=== PATIENT | female | born 1985 | race Caucasian/White ===

== ENCOUNTER 2016-07-21 11:08 | Emergency (ER) | payer OTHER ==
[~2016-07-21] VITALS: Ht 172.7 cm; Wt 144.1 kg
[~2016-07-21 11:08] MED LIST: ALDACTONE50 MG PO; BIRTH CONTROL PILL; CIPRO500 MG PO; FLEXERIL10 MG PO; GLUCOPHAGE1000 MG PO; GLUCOTROL XL5 MG PO; HTN MEDICATION; LISINOPRIL10 MG PO; METFORMIN HCL1000 MG PO; MICONAZOLE NITR45 GM VG; NAPROSYN500 MG PO; PRINIVIL10 MG PO; SERTRALINE HCL50 MG PO; SPRINTEC1 EACH PO; TYLENOL WITH C1 EACH PO; VICTOZA 2-0.6 MG/0.1 SC; ZOLOFT50 MG PO
[2016-07-21 12:19] LABS: HEMATOCRIT 41.3 % (36.0-46.0); MCH 28.5 PG (29.0-34.0); MCHC 35.4 G/DL (30.0-36.0); MCV 80.7 FL (83-99); MEAN PLAT.VOLUME 10.4 uM^3 (9.5-12.4); PLATELET COUNT 197 K/uL (156-360); RBC DIS.WIDTH-CV 12.7 % (11.8-14.6); RBC DIS.WIDTH-SD 36.9 % (39-53); RED BLOOD COUNT 5.12 M/uL (3.80-5.20)
[2016-07-21 12:28] LABS: CHLORIDE 100 mEq/L (99-109); SODIUM 133 mEq/L (136-147)
[2016-07-21 12:29] LABS: GLUCOSE 337 mg/dL (70-99)
[2016-07-21 12:31] LABS: ANION GAP 12 MEQ/L (2-14)
[2016-07-21 12:33] LABS: GFR ESTIMATE (CALCULATED) > 59 mL/min/
[2016-07-21 12:34] LABS: UREA NITROGEN (BUN) 10 mg/dL (9-23)
[2016-07-21 14:41] LABS: ADD MIUA? YES; BILIRUBIN NEGATIVE; BLOOD NEGATIVE; COLOR AMBER ((YELLOW)); GLUCOSE (STRIP) >=500; KETONES 5; LEUKOCYTES TRACE; NITRITE NEGATIVE; PROTEIN (STRIP) 30; SPECIFIC GRAVITY 1.024 (1.000-1.030); UROBILINOGEN 0.2 MG/DL (0.2-1.0)
[2016-07-21 15:36] LABS: EPITHELIAL CELLS 3+ /HPF; RED BLOOD CELLS 0-5 /HPF (0-5); WHITE BLOOD CELLS 0-5 /HPF (0-5)
[2016-07-21 15:37] LABS: BACTERIA 2+ /HPF; HYALINE CASTS 0-5 /LPF; MUCUS NONE SEEN /LPF; UCUL ADDED? NO
[2016-07-21] MEDS ORDERED: REGLAN5 MG PO (15:51)
[2016-07-21 15:54] LABS: POINT-OF-CARE METER ID UU13113702
[2016-07-21 16:31] VITALS: BP 119/66
== END 2016-07-21 16:37 | disposition home or self-care (01) ==
LOC: EME 11:08
PROVIDERS: Emergency Medicine
DX: E11.65 Type 2 diabetes mellitus with hyperglycemia (principal); R11.2 Nausea with vomiting, unspecified; R51 Headache; Z91.14 Patient's other noncompliance with medication regimen; I10 Essential (primary) hypertension; Z79.84 Long term (current) use of oral hypoglycemic drugs; F17.200 Nicotine dependence, unspecified, uncomplicated
CPT/HCPCS: 80048; 81003; 82948; 83605; 85027; 99281; 99285; J2765; J7030